=== PATIENT | female | born 1945 | race Caucasian/White ===

== ENCOUNTER 2020-08-16 12:31 | Outpatient (CLI) | payer MEDICARE, SELFPAY ==
--- NOTE | 2020-08-16 12:40 | XR_ITS ---
WS: [id number] RIGHT HIP HISTORY: PAIN IN RIGHT HIP COMPARISON: None available. Right hip: No acute fracture or dislocation. 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 Very mini mal osteophytic ridging around the acetabulum. No soft tissue abnormality. XR/XR hip RT 2-3V wo/w pel* [id number] IMPRESSION: 1. No hip fracture. 2. 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
== END 2020-08-16 12:32 | disposition home or self-care (01) ==
PROVIDERS: PCP Family Medicine; Visit Provider Family Medicine
DX: M25.551 Pain in right hip (principal)
CPT/HCPCS: 73502